=== PATIENT | male | born 1950 | race Caucasian/White ===

== ENCOUNTER → 2024-03-11 | Outpatient (CLI) | payer MEDICARE, OTHER, SELFPAY ==
--- NOTE | 2024-03-11 09:51 | XR_ITS ---
Examination: Testicular sonography complete TECHNIQUE: By resolution grayscale sonographic images testes, assessment arterial inflow venous outflow Doppler spectral analysis carful analysis Exam date and time: March 11, 2024 1012 hours INDICATIONS: Palpable lump in the right testicle note is beginning 4 months ago FINDINGS: Right testis 2.7 x 2.0 x 2.0 cm Epididymis 13 mm Arterial flow testicle. No testicular mass Moderate hydrocele Left testis 2.9 x 1.6 x 2.0 cm Epididymis 13 mm Left epididymal cysts, 4 x 5 mm, 8 x 7 mm Arterial flow testicle. No testicular mass Mild hydrocele IMPRESSION: No testicular torsion or testicular mass Small benign left epididymal cysts Moderate right mild left hydroceles
== END | disposition home or self-care (01) ==
LOC: CDIM 09:46
PROVIDERS: PCP Family Medicine; Referring Provider Family Medicine; Visit Provider Family Medicine
DX: N50.3 Cyst of epididymis (principal); N43.3 Hydrocele, unspecified
CPT/HCPCS: 76870